=== PATIENT | male | born 1955 | race Caucasian/White ===

== ENCOUNTER 2018-01-11 04:22 | Day surgery (SDC) | payer OTHER ==
[~2018-01-11 04:22] MED LIST: ALBUTEROL0.63 MG/3 IH; ALPRAZOLAM0.5 MG PO; ENALAPRIL MALEA20 MG PO; PEPCID20 MG PO; PERCOCET 5-3251 EACH PO; [UNRECOGNIZED DRUG - OTHER] PO
== END 2018-01-11 10:00 | disposition home or self-care (01) ==
LOC: AMB-ENDOS 04:22
DX: C20 Malignant neoplasm of rectum (principal)

== ENCOUNTER 2024-01-22 06:00 | Day surgery (SDC) | payer OTHER ==
[2024-01-22] MEDS ORDERED: MIDAZOLAM HCL 2 MG/2 ML VIAL IV ONE (09:30)
[2024-01-22] MEDS ORDERED: DIPHENHYDRAMINE HCL 50 MG/ML VIAL 1ML IV ONE (09:30)
[2024-01-22] MEDS ORDERED: fentaNYL CITRATE 50 MCG/ML AMPUL IV PUSH ONE (09:30)
== END 2024-01-22 09:50 | disposition home or self-care (01) ==
LOC: AMB-ENDOS 06:00
PROVIDERS: ATTEND Colon & Rectal Surgery
DX: K91.89 Other postprocedural complications and disorders of digestive system (principal); C20 Malignant neoplasm of rectum

== ENCOUNTER 2025-01-10 10:41 | Inpatient (IN) | payer OTHER ==
[~2025-01-10] VITALS: Ht 180.3 cm; Wt 93.0 kg
--- NOTE | 2025-01-10 11:26 | NUR ---
paciente alerta y orientado x 3. refiere sangrado anal y secresiones por el pene hacen [address] del [address]le. 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
[2025-01-10] MEDS ORDERED: PROTONIX40 MG PO (11:31)
[2025-01-10] MEDS ORDERED: DICY20TA PO (11:31)
[2025-01-10] MEDS ORDERED: 0.9 % SODIUM CHLORIDE 1,000 ML IV SCH (12:00)
[2025-01-10] MEDS ORDERED: FAMOTIDINE/PF 20 MG in 0.9 % SODIUM CHLORIDE 8 ML IV PUSH ONE (12:00)
[2025-01-10] MEDS ORDERED: KETOROLAC TROMETHAMINE 30 MG VIAL IU ONE (12:00)
--- NOTE | 2025-01-10 12:20 | NUR ---
SE ORIENTA A PACIENTE SOBRE TRATAMIENTO MEDICO, REFIERE ENTENDER. SE REALIZAN MUESTRAS DE LABORATORIO BAJO MEDIDAS ASEPTICAS. SE ADMINISTRAN MEDICAMENTOS ELIJAH ORDEN MEDICA. SE COORD[address] CT. PACIENTE MANEJADO POR ZoeANDREWSMENDY.
[2025-01-10 12:55] LABS: BASO % 0.5 % (0.1-1.2); EOS # 0.08 (0.04-0.54); EOS % 1.1 % (0.7-7.0); LYMPH # 0.96 (1.18-3.74); LYMPH % 13.1 % (19.3-53.1); MEAN PLATELET VOLUME 9.40 fl (9.4-12.4); MONO # 0.65 (0.24-0.82); MONO % 8.8 % (4.7-12.5); NEUT # 5.60 (1.56-6.13); NEUT % 76.2 % (34.0-71.1); RED CELL DISTRIBUTION WIDTH 14.3 % (11.6-14.4)
[2025-01-10 12:57] LABS: ERYTHROCYTE SEDIMENTATION RATE 77 mm/hr (0-20)
[2025-01-10 13:18] LABS: INR 1.04
[2025-01-10 13:25] LABS: ALT/SGPT 12.0 U/L (12-78); AST/SGOT 8.0 U/L (15-37); BILIRUBIN TOTAL 0.43 mg/dL (0.3-1.2); BUN CREA RATIO 16.0 (7.0-25.0); CREATININE SERUM 0.64 mg/dL (0.70-1.30); GFR 124.0; GLOBULINA 4.6 G/DL (2.4-3.5); GLUCOSE FASTING 123.0 mg/dL (65-100); OSMOLALITY SERUM 284.0 MOSM/KG (275-295)
[2025-01-10 13:46] LABS: URINE APPEARANCE Clear; URINE BILIRRUBIN Negative (NEGATIVE); URINE BLOOD Negative; URINE COLOR Dark Yellow; URINE GLUCOSE Negative (NEGATIVE); URINE KETONE Negative (NEGATIVE); URINE LEUKOCYTE Moderate; URINE NITRATE Negative; URINE UROBILINOGEN 1.0 E.U./dl
[2025-01-10 13:51] LABS: URINE CAST 1.46 uL (0.0-1.40); URINE EPITHELIAL CELLS 10.6 uL (0.0-38.8); URINE RBC 10.9 uL (0.0-20.8); URINE WBC 376.2 uL (0.0-23.2)
[2025-01-10 14:00] LABS: URINE PROTEIN 100 (NEGATIVE)
[2025-01-10] MEDS ORDERED: CIPROFLOXACIN IN 5 % DEXTROSE 200 ML IV ONE (15:30)
[2025-01-10] MEDS ORDERED: MORPHINE SULFATE 4 MG/ML CARTRIDGE IV ONE (17:15)
[2025-01-10] MEDS ORDERED: MORPHINE SULFATE 2 MG/ML SYRINGE IV PRN (22:45)
[2025-01-11 07:55] LABS: BASO % 0.9 % (0.1-1.2); EOS # 0.20 (0.04-0.54); EOS % 3.5 % (0.7-7.0); LYMPH # 1.48 (1.18-3.74); LYMPH % 26.1 % (19.3-53.1); MEAN PLATELET VOLUME 9.90 fl (9.4-12.4); MONO # 0.66 (0.24-0.82); MONO % 11.6 % (4.7-12.5); NEUT # 3.22 (1.56-6.13); NEUT % 56.7 % (34.0-71.1); RED CELL DISTRIBUTION WIDTH 14.1 % (11.6-14.4)
[2025-01-11 08:02] LABS: INR 1.07
[2025-01-11 08:04] LABS: BUN CREA RATIO 16.0 (7.0-25.0); CREATININE SERUM 0.62 mg/dL (0.70-1.30); GFR 128.62; GLUCOSE FASTING 96.0 mg/dL (65-100); OSMOLALITY SERUM 284.0 MOSM/KG (275-295)
[2025-01-11 08:05] VITALS: BP 151/82; O2SAT 97
[2025-01-11] MEDS ORDERED: CIPROFLOXACIN IN 5 % DEXTROSE 200 ML IV SCH (09:00)
[2025-01-11 12:05] VITALS: BP 152/74; O2SAT 97
[2025-01-11 16:52] VITALS: BP 154/81; O2SAT 97
[2025-01-12 00:30] VITALS: BP 134/78; O2SAT 98
[2025-01-12 08:00] VITALS: BP 152/73; O2SAT 96
[2025-01-12] MEDS ORDERED: ONDANSETRON HCL 2 MG/ML VIAL IV PRN (11:00)
[2025-01-12 16:00] VITALS: BP 147/72; O2SAT 97
[2025-01-13] VITALS: BP 147/69; O2SAT 95
[2025-01-13 08:33] VITALS: BP 155/81; O2SAT 96
[2025-01-13] MEDS ORDERED: SUGAMMADEX SODIUM 200 MG/2 ML VIAL IV ONE (15:46)
[2025-01-13] MEDS ORDERED: RINGERS SOLUTION,LACTATED 1,000 ML IV SCH (16:00)
[2025-01-13] MEDS ORDERED: MORPHINE SULFATE 4 MG/ML CARTRIDGE IV PRN (16:00)
[2025-01-13] MEDS ORDERED: ONDANSETRON HCL 2 MG/ML VIAL IV PRN (16:00)
[2025-01-13] MEDS ORDERED: DEXTROSE 50 % IN WATER 0.5 G/ML DISP.SYRIN IV PRN (16:00)
[2025-01-13] MEDS ORDERED: OxyCODONE HCL 5 MG TABLET (ROXICODONE) PO PRN (16:00)
[2025-01-13] MEDS ORDERED: BUPIVACAINE HCL 30 ML VIAL IJ ONE (16:45)
[2025-01-13] MEDS ORDERED: LIDOCAINE HCL 1%/EPINEPHRINE 20ML VIAL IJ ONE (16:45)
[2025-01-13] MEDS ORDERED: GABAPENTIN 300 MG CAPSULE PO SCH (17:00)
[2025-01-13] MEDS ORDERED: CELECOXIB 200 MG CAPSULE PO SCH (17:00)
[2025-01-13] MEDS ORDERED: SIMETHICONE 125 MG CAPSULE PO SCH (17:00)
[2025-01-13] MEDS ORDERED: HYOSCYAMINE SULFATE 0.125 MG TAB.SUBL SL SCH (17:00)
[2025-01-13] MEDS ORDERED: METOCLOPRAMIDE HCL 5 MG/ML VIAL IV SCH (17:00)
[2025-01-13] MEDS ORDERED: CELECOXIB 200 MG CAPSULE PO ONE (18:43)
[2025-01-13] MEDS ORDERED: SIMETHICONE 125 MG CAPSULE PO ONE (18:44)
[2025-01-13] MEDS ORDERED: METRONIDAZOLE/SODIUM CHLORIDE 500 MG/100 ML PIGGYBACK IV ONE (18:44)
[2025-01-13] MEDS ORDERED: HYOSCYAMINE SULFATE 0.125 MG TAB.SUBL ONE (18:44)
[2025-01-13] MEDS ORDERED: GABAPENTIN 300 MG CAPSULE PO ONE (18:45)
[2025-01-13] MEDS ORDERED: METOCLOPRAMIDE HCL 5 MG/ML VIAL ONE (18:46)
[2025-01-13 19:45] VITALS: BP 165/76; O2SAT 95
[2025-01-13 20:00] LABS: BASO % 0.5 % (0.1-1.2); EOS # 0.02 (0.04-0.54); EOS % 0.2 % (0.7-7.0); LYMPH # 0.65 (1.18-3.74); LYMPH % 6.2 % (19.3-53.1); MEAN PLATELET VOLUME 9.60 fl (9.4-12.4); MONO # 0.59 (0.24-0.82); MONO % 5.6 % (4.7-12.5); NEUT # 9.05 (1.56-6.13); NEUT % 86.6 % (34.0-71.1); RED CELL DISTRIBUTION WIDTH 13.9 % (11.6-14.4)
[2025-01-13] MEDS ORDERED: ACETAMINOPHEN 500 MG GEL..CAP PO SCH (20:00)
[2025-01-13] MEDS ORDERED: FAMOTIDINE/PF 20 MG/2 ML VIAL IV PUSH SCH (21:00)
[2025-01-14 03:21] VITALS: BP 126/68; O2SAT 97
[2025-01-14 07:56] LABS: BASO % 0.5 % (0.1-1.2); EOS # 0.20 (0.04-0.54); EOS % 2.6 % (0.7-7.0); LYMPH # 0.83 (1.18-3.74); LYMPH % 11.0 % (19.3-53.1); MEAN PLATELET VOLUME 9.40 fl (9.4-12.4); MONO # 0.51 (0.24-0.82); MONO % 6.7 % (4.7-12.5); NEUT # 5.95 (1.56-6.13); NEUT % 78.8 % (34.0-71.1); RED CELL DISTRIBUTION WIDTH 13.9 % (11.6-14.4)
[2025-01-14 08:41] LABS: BUN CREA RATIO 11.0 (7.0-25.0); CREATININE SERUM 0.47 mg/dL (0.70-1.30); GFR 177.07; GLUCOSE FASTING 75.0 mg/dL (65-100); OSMOLALITY SERUM 283.0 MOSM/KG (275-295)
[2025-01-14] MEDS ORDERED: LACTOBACILLUS ACIDOPHILUS 1 CAP CAP PO SCH (09:00)
[2025-01-14] MEDS ORDERED: LACTULOSE 20 G/30 ML BLIST.PACK PO SCH (09:00)
[2025-01-14 09:24] VITALS: BP 143/64; O2SAT 96
[2025-01-14 16:00] VITALS: BP 163/78; O2SAT 96
[2025-01-14] MEDS ORDERED: ENOXAPARIN SODIUM 40 MG/0.4 ML SYRINGE SUBCUTANEO SCH (17:00)
[2025-01-15 00:30] VITALS: BP 130/75; O2SAT 98
[2025-01-15 08:38] VITALS: BP 164/81; O2SAT 96
[2025-01-15] MEDS ORDERED: ENOXAPARIN SODIUM 40 MG/0.4 ML SYRINGE SUBCUTANEO SCH (09:00)
[2025-01-15 17:04] VITALS: BP 170/85; O2SAT 97
[2025-01-16 01:10] VITALS: BP 144/79; O2SAT 98
[2025-01-16] MEDS ORDERED: CIPRO500 MG PO (07:11)
[2025-01-16] MEDS ORDERED: METRONIDAZOLE500 MG PO (07:11)
[2025-01-16 07:30] VITALS: BP 167/89; O2SAT 96
== END 2025-01-16 13:10 | disposition home or self-care (01) | DRG 330 ==
LOC: ER 10:41 → SURH 23:30 → SEC-K 23:30 → SURH 01-11 08:34 → O/R 01-12 16:20 → SURH 01-12 16:21
PROVIDERS: Colon & Rectal Surgery; General Practice; ADMIT Internal Medicine; ATTEND Internal Medicine
PROC: BW21YZZ Computerized Tomography (CT Scan) of Abdomen and Pelvis using Other Contrast (ICD-10-PCS; 2025-01-10)
PROC: B54CZZZ Ultrasonography of Left Lower Extremity Veins (ICD-10-PCS; 2025-01-13)
PROC: 0D1L4Z4 Bypass Transverse Colon to Cutaneous, Percutaneous Endoscopic Approach (ICD-10-PCS; principal; 2025-01-13 14:15)
DX: C20 Malignant neoplasm of rectum (principal); K62.5 Hemorrhage of anus and rectum; N32.1 Vesicointestinal fistula